=== PATIENT | female | born 1980 | race Caucasian/White ===

== ENCOUNTER 2024-05-14 19:27 | Emergency (ER) | payer SELFPAY ==
--- NOTE | 2024-05-14 20:39 | RAD REPORT ---
EXAMINATION: Ribs Left CLINICAL INDICATION: Female, 44 years old. PAIN COMPARISON: No prior exam. VIEWS: As above FINDINGS: No displaced left-sided rib fractures identified. No pneumothorax. The left lung is clear. IMPRESSION: No displaced left-sided rib fracture.
[2024-05-14] MEDS ORDERED: HYDROCODONE/APAP 7.5/325 MG TAB ONE (20:56)
[2024-05-14] MEDS ORDERED: CYCLOBENZAPRINE 10 MG TAB ONE (20:56)
--- NOTE | 2024-05-14 21:26 | EDPHYS ---
Physician Documentation [facility] Name: Saba Olea Age: 44 yrs Sex: Female : 1980 Arrival Date: 05/14/2024 Time: 19: Bed 12 Private MD: ED Physician Chaparro Poon HPI: 05/14 19:55 This 44 yrs old Female presents to ER via Wheelchair with complaints of RIB PAIN. cp 19:55 Patient presents to ED with c/o left lateral lower rib pain times 3 days. 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 Denies shortness of breath. Pain worse when lying on left side. Historical: - Allergies: 19:49 No Known Allergies; hb - Home Meds: 19:49 None [Active]; hb - PMHx: 19:49 Gstric Ulcers; hb - PSHx: 19:49 Partial Hysterectomy; hb - Immunization history:: Adult Immunizations up to date. - Infectious Disease History:: Denies. - Social history:: Smoking status: Patient denies any tobacco usage or history of. ROS: 20:00 Constitutional: history per hpi cp 20:00 Constitutional: Negative for chills, fever, cp 20:00 Respiratory: Negative for cough, shortness of breath, wheezing, 20:00 Abdomen/GI: Negative for vomiting, diarrhea, constipation, 20:00 Back: Negative for pain at rest, pain with movement, 20:00 Neuro: Negative for altered mental status, dizziness, headache, weakness, 20:00 All other systems are negative, Exam: 20:05 Constitutional: The patient appears in no acute distress, alert, awake, cp non-diaphoretic, non-toxic, well developed, well nourished, uncomfortable, 20:05 Head/Face: Normocephalic, atraumatic. cp 20:05 Eyes: Periorbital structures: appear normal, Conjunctiva: normal, no exudate, no injection, Sclera: no appreciated abnormality, Lids and lashes: appear normal, bilaterally, 20:05 ENT: External ear(s): are unremarkable, Nose: is normal, Mouth: Lips: moist, Oral mucosa: pink and intact, moist, Posterior pharynx: Airway: no evidence of obstruction, patent, 20:05 Neck: ROM/movement: is normal, is supple, without pain, no range of motions limitations, 20:05 Chest/axilla: Inspection: normal, Palpation: crepitus, is not appreciated, tenderness, that is moderate, of the left lateral lower rib area, no rash noted. 20:05 Cardiovascular: Rate: normal, Rhythm: regular, Edema: is not appreciated, JVD: is not appreciated, 20:05 Respiratory: the patient does not display signs of respiratory distress, Respirations: normal, no use of accessory muscles, no retractions, labored breathing, is not present, Breath sounds: are clear throughout, no decreased breath sounds, no stridor, no wheezing, 20:05 Abdomen/GI: Inspection: abdomen appears normal, Palpation: abdomen is soft and non-tender, in all quadrants, 20:05 Back: CVA tenderness, is absent, vertebral tenderness, is not appreciated, 20:05 Neuro: Orientation: to person, place \T\ time. Mentation: is normal, Motor: moves all fours, strength is normal, Gait: is steady, Vital Signs: 19:46 BP 129 / 69; Pulse 84; Resp 16; Temp 97.3; Pulse Ox 100% on R/A; Weight 90.72 kg; hb Height 5 ft. 6 in. ; Pain 10/10; 19:46 Body Mass Index 32.28 (90.72 kg, 167.64 cm) hb 19:46 Pain Scale: Adult hb MDM: 19:50 Medical Screening Exam initiated cp 20:00 Differential diagnosis: pleurisy, pneumonia, pneumothorax, stable angina, unstable cp angina, contusion, shingles, intercostal strain acute coronary syndrome. 21:25 Data reviewed: vital signs, nurses notes, radiologic studies, plain films, and as a cp result, I will discharge patient. 21:26 I considered the following discharge prescriptions or medication management in the cp emergency department Medications were administered in the Emergency Department. See JUN. 21:26 Counseling: I had a detailed discussion with the patient and/or guardian regarding the cp historical points, exam findings, and any diagnostic results supporting the discharge/admit diagnosis, radiology results, to return to the emergency department if symptoms worsen or persist or if there are any questions or concerns that arise at home. Response to treatment: the patient's symptoms have mildly improved after treatment, and as a result, I will discharge patient. 05/14 19:51 Order name: MICAELA Ribs LEFT; Complete Time: 20:51 cp 05/14 20:51 Interpretation: Report reviewed. cp Administered Medications: 21:02 Drug: Cyclobenzaprine PO 10 mg PO once Route: PO; kj2 21:03 Drug: Hydrocodone-Acetaminophen PO (7.5 mg-325 mg) 1 tabs PO once; RASS on ADMIN: kj2 Combtv4, Very Agttd3, Agttd2, Rstlss1, AlertClm0, Drwsy-1, Lt Sdtn-2, Mod Sdtn-3, Dp Sdtn-4, UnArsble-5 Route: PO; Disposition Summary: 05/14/24 21:26 Discharge Ordered Notes: Location: Home cp Problem: new cp Symptoms: have improved cp Condition: Stable cp Diagnosis - Strain of muscle and tendon of front wall of thorax, initial encounter cp Followup: cp - With: Private Physician - When: 5 - 6 days - Reason: Recheck today's complaints Discharge Instructions: - Discharge Summary Sheet cp - Muscle Strain cp - Thoracic Strain cp Forms: - Medication Reconciliation Form cp - Antibiotic Education cp - Prescription Opioid Use cp - Patient Portal Instructions cp - Leadership Thank You Letter cp Prescriptions: - Anaprox DS 550 mg Oral Tablet - take 1 tablet ORAL route every 12 hours As needed; 20 tablet; Refills: 0, cp Product Selection Permitted - Cyclobenzaprine 10 mg Oral Tablet - take 1 tablet ORAL route every 8 hours As needed; 30 tablet; Refills: 0, cp Product Selection Permitted Signatures: Dispatcher [employer] EDMS Chaparro Aguilera PA PA cp Tomasa Jorgensen, MACKENZIE MANN Janet Emanuel RN RN kj2 Corrections: (The following items were deleted from the chart) 19:52 19:52 Ribs Left+RAD.RAD.BRZ ordered. EDMS EDMS 19:52 19:52 Urinalysis+U.LAB.BRZ ordered. EDMS EDMS 20:28 19:52 Test, Urine+UC.LAB.BRZ ordered. EDMS EDMS
--- NOTE | 2024-05-14 21:26 | ER ---
Nurse's Notes [facility] Name: Saba Olea Age: 44 yrs Sex: Female : 1980 Arrival Date: 05/14/2024 Time: 19:27 Bed 12 Private MD: Diagnosis: Strain of muscle and tendon of front wall of thorax, initial encounter Presentation: 05/14 19:46 Chief complaint: Left sided rib pain x 3 days. Coronavirus screen: At this time, the hb client does not indicate any symptoms associated with coronavirus-19. Ebola Screen: No symptoms or risks identified at this time. Initial Sepsis Screen: Does the patient meet any 2 criteria? No. Patient's initial sepsis screen is negative. Does the patient have a suspected source of infection? No. Patient's initial sepsis screen is negative. Risk Assessment: Do you want to hurt yourself or someone else? Patient reports no desire to harm self or others. Onset of symptoms was May 11, 2024. 19:46 Method Of Arrival: Wheelchair 19:46 Acuity: AMBER 4 hb Historical: - Allergies: 19:49 No Known Allergies; hb - Home Meds: 19:49 None [Active]; hb - PMHx: 19:49 Gstric Ulcers; hb - PSHx: 19:49 Partial Hysterectomy; hb - Immunization history:: Adult Immunizations up to date. - Infectious Disease History:: Denies. - Social history:: Smoking status: Patient denies any tobacco usage or history of. Screenin:30 [facility] ED Fall Risk Assessment (Adult) History of falling in the last 3 months, kj2 including since admission No falls in past 3 months (0 pts) Confusion or Disorientation No (0 pts) Intoxicated or Sedated No (0 pts) Impaired Gait No (0 pts) Mobility Assist Device Used No (0 pt) Altered Elimination No (0 pt) Score/Fall Risk Level 0 - 2 = Low Risk Maintained a safe environment, Hourly rounding (assess needs \T\ fall precautionary measures) done. Abuse screen: Denies threats or abuse. Denies injuries from another. Nutritional screening: No deficits noted. Tuberculosis screening: No symptoms or risk factors identified. Assessment: 20:30 General: Appears in no apparent distress. uncomfortable, Behavior is calm, cooperative. kj2 Pain: Complains of pain in rib cage Pain currently is 8 out of 10 on a pain scale. Neuro: Level of Consciousness is awake, alert, obeys commands, Oriented to person, place, time, situation. Cardiovascular: Patient's skin is warm and dry. Respiratory: Airway is patent Respiratory effort is unlabored. GI: Bowel sounds present X 4 quads. Abdomen is tender to palpation. : No signs and/or symptoms were reported regarding the genitourinary system. Vital Signs: 19:46 BP 129 / 69; Pulse 84; Resp 16; Temp 97.3; Pulse Ox 100% on R/A; Weight 90.72 kg; hb Height 5 ft. 6 in. ; Pain 10/10; 19:46 Body Mass Index 32.28 (90.72 kg, 167.64 cm) hb 19:46 Pain Scale: Adult hb ED Course: 19:31 Patient arrived in ED. im 19:38 Chaparro Aguilera PA is PHCP. cp 19:38 Chaparro Poon MD is Attending Physician. cp 19:48 Triage completed. hb 19:50 Arm band placed on. hb 20:30 Patient has correct armband on for positive identification. Provided Education on: call kj2 light. 20:32 XRAY Ribs LEFT In Process Unspecified. EDMS 20:53 Janet Emanuel, RN is Primary Nurse. kj2 21:06 No provider procedures requiring assistance completed. kj2 21:42 Patient did not have IV access during this emergency room visit. hb Administered Medications: 21:02 Drug: Cyclobenzaprine PO 10 mg PO once Route: PO; kj2 21:03 Drug: Hydrocodone-Acetaminophen PO (7.5 mg-325 mg) 1 tabs PO once; RASS on ADMIN: kj2 Combtv4, Very Agttd3, Agttd2, Rstlss1, AlertClm0, Drwsy-1, Lt Sdtn-2, Mod Sdtn-3, Dp Sdtn-4, UnArsble-5 Route: PO; Outcome: 21:26 Discharge ordered by . cp 21:42 Discharged to home ambulatory, with significant other, 21:42 Condition: stable 21:42 Discharge instructions given to patient, significant other, Instructed on discharge instructions, follow up and referral plans. medication usage, Demonstrated understanding of instructions, follow-up care, medications, Prescriptions given X 2, 21:42 Patient left the ED. hb Signatures: Dispatcher [employer] EDMS Chaparro Aguilera PA PA cp Baxter, Heather, RN RN Brandy Desai Krystal, RN RN kj2 Corrections: (The following items were deleted from the chart) 19:49 19:46 BP 129 / 69; Pulse 84bpm; Resp 16bpm; Pulse Ox 100% RA; Temp 97.3F; 83.91 kg; hb Height 5 ft. 6 in.; BMI: 29.8; Pain 10/10, Adult; hb 19:50 19:46 Acuity: AMBER 3 hb hb 19:51 19:46 Chief complaint: Upper abdominal pain and nausea 3 days. hb hb
[2024-05-15 06:07] VITALS: BP 129/69; TEMP 97.3; O2SAT 100
== END 2024-05-14 21:42 | disposition home or self-care (01) ==
LOC: ER 19:27
DX: S29.011A Strain of muscle and tendon of front wall of thorax, initial encounter (principal)
CPT/HCPCS: 99283